=== PATIENT | female | born 1960 | race Caucasian/White ===

== ENCOUNTER 2017-12-21 13:14 | Emergency (ER) | payer OTHER ==
[~2017-12-21] VITALS: Ht 170.2 cm; Wt 65.8 kg
[~2017-12-21 13:14] MED LIST: ALPRAZOLAM0.5 MG PO; ZITHROMAX Z-PA250 M1 PO
[2017-12-21 13:49] VITALS: BP 145/85
== END 2017-12-21 14:06 | disposition admitted as inpatient to this hospital (09) ==
LOC: ERH 13:14
DX: G89.18 Other acute postprocedural pain (principal)